=== PATIENT | male | born 1970 | race Caucasian/White ===

== ENCOUNTER 2024-10-13 01:57 | Inpatient (IN) | payer BC, SELFPAY ==
[2024-10-12 17:55] VITALS: BP 130/83
--- NOTE | 2024-10-12 17:59 | ED.GENMED ---
ED Provider Triage
<Mikey Lara PA-C - Last Filed: 10/12/24 18:00>
-
Patient seen by provider in Triage?: Seen in Triage
Attestation: A medical screening examination has been initiated by a qualified medical provider. Based on the assessment performed at this time, it has been determined that an emergent medical condition may exist and the patient has been informed
that further medical evaluation and possible additional diagnostic testing may be needed.
HPI: 53-year-old male with history of colectomy with ostomy presents with 1 weeks worth of worsening dysuria increased frequency and now lower abdominal pain. Temperature at triage 100.2. He denies any flank pain. No prior history of kidney
stones. He denies any blood in the urine. UTI versus pyelonephritis versus renal colic. Labs pending urinalysis ordered CT ordered
GENERAL: Alert , in no apparent distress
EYE: No visual abnormalities.
NECK: Trachea midline
ENT: No visible abnormalities.
LUNGS: No acute respiratory distress
NEUROLOGICAL: Alert and oriented
SKIN: Skin intact. No visible changes.
MUSCULOSKELETAL: Moving extremities normally
PSYCH: Normal and appropriate interaction.
This is a medical evaluation conducted in person to initiate diagnostic evaluation and provide initial therapeutics. Please see further documentation by the treating clinician.
History of Present Illness
<Mikey Lara PA-C - Last Filed: 10/12/24 18:00>
General
Chief Complaint: Urinary Symptoms
Time Seen by Provider: 10/12/24 20:29
<Fermin Jaime MD - Last Filed: 10/13/24 03:12>
General
Source: patient
Exam Limitations: none
Nursing documentation reviewed up to this point in time: agreed with
History of Present Illness
History of Present Illness:
Patient presents to ED secondary to 1 week history of urinary frequency, urgency, and hesitancy, with concerned that he may have urinary tract infection. Today, patient experienced fever and chills at home, which prompted evaluation in ED. Denies
painful urination. Denies back pain. Denies inability to urinate. Denies previous history of similar symptoms. Patient does not have history of urinary tract infection. Patient's abdominal history includes previous colectomy with colostomy bag
present. Patient states that his stool content has been normal. Denies recent change in medications or diet. Patient also reports mild along bilateral lower abdomen. Denies history of kidney stones. Denies trauma.
Past History
<Mikey Lara PA-C - Last Filed: 10/12/24 18:00>
Past History
ED Past Medical History: Other (ulcerative colitis)
ED Past Surgical History: Bowel resection (Total colectomy with ostomy bag )
Patient has exhibited threatening behavior?: No
Social History
Tobacco: Non-smoker
Alcohol: None
Drug: None
Review of Systems
<Fermin Jaime MD - Last Filed: 10/13/24 03:12>
Review of Systems
Allergies reviewed?: Yes
All Other Systems: ROS reviewed and negative except as documented in HPI and ROS
Constitutional: Reports fever and chills
EENT: Reports no symptoms
Respiratory: Reports no symptoms
Cardiac: Reports no symptoms
ABD/GI: Reports abdominal pain; Denies vomiting or diarrhea
: Denies dysuria, flank pain, difficulty voiding or bleeding
Musculoskeletal: Reports no symptoms
Skin: Reports no symptoms
Neurological: Reports no symptoms
Endocrine: Reports polyuria
Phy Exam
<Fermin Jaime MD - Last Filed: 10/13/24 03:12>
Physical Exam
Physical Exam:
Physical Exam
General: mild distress, not acutely ill. afebrile
Head: nc/at. eomi
Neck: supple. no meningeal signs.
Heart: s1/s2 regular rate and rhythm, no murmur.
Lungs: no acute respiratory distress. clear bilaterally
Abdomen: normal bowel sounds. not tender. no cva tenderness
Neuro: alert and oriented x 3. no focal neurological deficits
Skin: no rash
Psychiatric: well kept. interactive and cooperative
Extremities: no edema. no calf tenderness.
Sepsis
<Fermin Jaime MD - Last Filed: 10/13/24 03:12>
Sepsis Screening
Sepsis Assessment: Sepsis
Sepsis Screen
Sepsis Screen: Sepsis
Date: 10/13/24
Time: 03:11
Course
<Mikey Lara PA-C - Last Filed: 10/12/24 18:00>
Orders/Labs/Results
Orders:
Orders
10/12/24 17:58
CT Abd/pelvis W Iv Cont Urgent
Comment:
Reason For Exam: lower abdominal pain, urinary symptoms
10/12/24 18:14
Complete Blood Count/With Diff Urgent
Comprehensive Metabolic Panel Urgent
Glycohemoglobin (HgbA1c) Urgent
Urinalysis Reflex To Culture Urgent
Date Specimen was Collected: 10/12/24
Time Specimen was Collected: 18:03
Urine Microscopic Reflex Cult Urgent
Urine Culture Urgent
AMADEO Source: U
Specimen Description:
Date Specimen was Collected: 10/12/24
Time Specimen was Collected: 18:03
Comment: ADD ON
10/12/24 20:30
Add On - Microbiology Urgent
Tests Added?: urine culture
10/12/24 20:48
0.9% Sodium Chloride 1000 ml [Nss] 1,000 ml IV BOLUS
10/12/24 23:15
Piperacillin/Tazo 3.375 Gram [Zosyn] 3.375 gram in 50 ml IV NOW
10/12/24 23:18
Add On- LAB Urgent
Tests Added?: Hemoglobin A1c
10/12/24 23:30
Lactic Acid Q4H
Comment: CANCEL 2nd LACTIC ACID IF 1st LACTIC ACID IS LESS THAN 2
Blood Culture Q30M
AMADEO Source: Blood/Venous
Specimen Description:
10/13/24 00:39
Admit/Transfer Patient As Directed
Co-Sign Provider:
Level of Care: Inpatient admission
Assign to:: Medical/Surgical
Physician / Group: [facility]
Diagnosis: Intra-Abdominal Abscess
Reason for Hospitalization: Intra-Abdominal Abscess
Expected length of stay greater than two midnights?: Yes
ELOS- Estimated Length of Stay in days: 3
I certify the patient meets the requirements for IP care: Yes
10/13/24 00:40
Code Status As Directed
Resuscitation Status: Full Code
PRN Pain Medication Management As Directed
May give lesser potent ordered pain med per pt: Yes
preference::
Protocol:: Medication orders for pain may be administered in a
manner that supports deferring to patient preference
when the pt is:
- Requesting an ordered lesser potent pain medication.
Least to most potent pain medications are defined
as: acetaminophen < NSAID < tramadol < opioids
(morphine, oxycodone, hydromorphone).
- Requesting a lesser dose of the same medication IF
ORDERED.
- Requesting a less intrusive route of administration
if both routes are prescribed by the provider (PO <
IV).
10/13/24 02:14
Acetaminophen [Tylenol] 650 mg PO Q4HPRN PRN
Dextrose 50%-Water [Dextrose 50% Syringe] 12.5 grams IV [id number] PRN
Glucagon [GlucaGen] 1 mg IM PRN PRN
HYDROmorphone [Dilaudid] 0.5 mg IV Q4HPRN PRN
Lactated Ringers [Lr] 1,000 ml IV 125 mls/hr
Ondansetron Injectable [Zofran] 4 mg IV Q6HPRN PRN
10/13/24 02:14
ColoRectal Surgery Consult Routine
Consulting Provider: Rashi Obregon
Was physician already notified: No
Reason for consult: Intra-Abdominal Abscess (At rectosigmoid stump)
Consult Notification Routine
Specialty to Notify: Colorectal Surgery
Consult Notification Routine
Specialty to Notify: IRAD (Interventional Radiology)
DIETARY CONSULT Routine
Reason for Consult: New DM
Diabetes Education Consult Routine
Reason for Consult: Monitor Instruction
Newly Diagnosed?: Yes
IRAD CONSULT Routine
Consulting Provider: Mata Lima
Was physician already notified: No
Reason for Consult/Procedure: Intra-Abdominal Abscess
Acknowledgement that appropriate orders are entered: Yes
Fluid Culture with Gram Stain Routine
AMADEO Source: Peritoneal Fluid
Specimen Description:
Activity As Directed
Activity Level: Ambulate
Bedside Glucose Monitoring As Directed
Frequency: AC&HS
Additional Instructions:: Change to q6h if pt on TPN, tube feeding or not eating
Bladder Scan As Directed
Follow Bladder Retention/Intermittent Cath Algorithm?: Yes
PRN if no void in __ hours: 6
Frequency: Per Retention Algorithm
If Bladder Scan Result >: 400
then:: Straight cath
I/O [Intake/ Output] As Directed
Frequency: Per unit guidelines
Ostomy Care As Directed
Pneumatic Compression Sleeves As Directed
Type: Knee high
Straight Cath As Directed
Frequency: Per Retention Algorithm
Additional Instructions: straight cath as needed per acute urinary retention algorithm for 24 hrs
Additional Instructions: for bladder scan greater than 400 mL
Vital Signs As Directed
Frequency: Per unit guidelines
Weight As Directed
Frequency: Daily
Oxygen Therapy [O2 Therapy] [RESP] Routine
Titrate/Wean O2 to maintain O2 sat greater than (%): 94
DX Deep Vein Thrombosis Video Routine
10/13/24 02:37
Blood Culture Q30M
AMADEO Source: Blood/Venous
Specimen Description:
10/13/24 03:30
Lactic Acid Q4H
Comment: CANCEL 2nd LACTIC ACID IF 1st LACTIC ACID IS LESS THAN 2
10/13/24 Breakfast
NPO
Allow oral meds: Yes
Allow clear liquids: Sips of Clears
Basic Metabolic Panel IN AM
Complete Blood Count/No Diff IN AM
Piperacillin/Tazo 3.375 Gram [Zosyn] 3.375 gram in 50 ml IV Q6H
10/13/24 07:30
Insulin Aspart Corrective Low [Novolog Flexpen-Low Resistance] See Protocol SC AC
10/13/24 08:00
Olmesartan Medoxomil [Benicar] 20 mg PO DAILY
Abnormal Lab Results
10/12/24 10/12/24
18:14 22:34
WBC 12.0 H 10^3/uL
(4.8-10.8)
RBC 4.42 L 10^6/uL
(4.70-6.10)
MCH 31.4 H pg
(27.0-31.0)
MPV 11.2 H fL
(7.4-10.4)
Abs Immat Gran (auto) 0.1 H 10^3/uL
(0-0.05)
Absolute Neuts (auto) 8.8 H 10^3/uL
(1.4-6.5)
Absolute Monos (auto) 1.0 H 10^3/uL
(0.1-0.6)
Immature Gran % 0.6 H %
(0-0.5)
Lymphocytes % 15.8 L %
(20.5-51.1)
Sodium 130 L mmol/L
(135-145)
Chloride 96 L mmol/L
(98-107)
Carbon Dioxide 21 L mmol/L
(22-30)
BUN 22 H mg/dl
(9-20)
Glucose 416 H mg/dl
(70-99)
Total Bilirubin 1.5 H mg/dl
(0.2-1.3)
Urine Bacteria (Reflex) Few A
(Negative)
Urine Glucose 4+ A
(Negative)
Urine Albumin (Reflex) 1+ A
(Neg - Trace)
POC Glucose 321 H mg/dl
(70-99)
10/12/24 18:14
10/12/24 18:14
Vital Signs
Initial and Last Documented VS:
Initial Vital Signs
Temp Pulse Resp BP Pulse Ox
100.2 F 112 20 130/83 97
10/12/24 17:55 10/12/24 17:55 10/12/24 17:55 10/12/24 17:55 10/12/24 17:55
Last Documented Vital Signs
Temp Pulse Resp BP Pulse Ox
100.2 F 86 18 123/74 99
10/12/24 17:55 10/12/24 23:15 10/12/24 23:15 10/12/24 23:00 10/12/24 22:45
<Fermin Jaime MD - Last Filed: 10/13/24 03:12>
Orders/Labs/Results
Orders:
Orders
10/12/24 17:58
CT Abd/pelvis W Iv Cont Urgent
Comment:
Reason For Exam: lower abdominal pain, urinary symptoms
10/12/24 18:14
Complete Blood Count/With Diff Urgent
Comprehensive Metabolic Panel Urgent
Glycohemoglobin (HgbA1c) Urgent
Urinalysis Reflex To Culture Urgent
Date Specimen was Collected: 10/12/24
Time Specimen was Collected: 18:03
Urine Microscopic Reflex Cult Urgent
Urine Culture Urgent
AMADEO Source: U
Specimen Description:
Date Specimen was Collected: 10/12/24
Time Specimen was Collected: 18:03
Comment: ADD ON
10/12/24 20:30
Add On - Microbiology Urgent
Tests Added?: urine culture
10/12/24 20:48
0.9% Sodium Chloride 1000 ml [Nss] 1,000 ml IV BOLUS
10/12/24 23:15
Piperacillin/Tazo 3.375 Gram [Zosyn] 3.375 gram in 50 ml IV NOW
10/12/24 23:18
Add On- LAB Urgent
Tests Added?: Hemoglobin A1c
10/12/24 23:30
Lactic Acid Q4H
Comment: CANCEL 2nd LACTIC ACID IF 1st LACTIC ACID IS LESS THAN 2
Blood Culture Q30M
AMADEO Source: Blood/Venous
Specimen Description:
10/13/24 00:39
Admit/Transfer Patient As Directed
Co-Sign Provider:
Level of Care: Inpatient admission
Assign to:: Medical/Surgical
Physician / Group: Jones
Diagnosis: Intra-Abdominal Abscess
Reason for Hospitalization: Intra-Abdominal Abscess
Expected length of stay greater than two midnights?: Yes
ELOS- Estimated Length of Stay in days: 3
I certify the patient meets the requirements for IP care: Yes
10/13/24 00:40
Code Status As Directed
Resuscitation Status: Full Code
PRN Pain Medication Management As Directed
May give lesser potent ordered pain med per pt: Yes
preference::
Protocol:: Medication orders for pain may be administered in a
manner that supports deferring to patient preference
when the pt is:
- Requesting an ordered lesser potent pain medication.
Least to most potent pain medications are defined
as: acetaminophen < NSAID < tramadol < opioids
(morphine, oxycodone, hydromorphone).
- Requesting a lesser dose of the same medication IF
ORDERED.
- Requesting a less intrusive route of administration
if both routes are prescribed by the provider (PO <
IV).
10/13/24 02:14
Acetaminophen [Tylenol] 650 mg PO Q4HPRN PRN
Dextrose 50%-Water [Dextrose 50% Syringe] 12.5 grams IV [id number] PRN
Glucagon [GlucaGen] 1 mg IM PRN PRN
HYDROmorphone [Dilaudid] 0.5 mg IV Q4HPRN PRN
Lactated Ringers [Lr] 1,000 ml IV 125 mls/hr
Ondansetron Injectable [Zofran] 4 mg IV Q6HPRN PRN
10/13/24 02:14
ColoRectal Surgery Consult Routine
Consulting Provider: Rashi Obregon
Was physician already notified: No
Reason for consult: Intra-Abdominal Abscess (At rectosigmoid stump)
Consult Notification Routine
Specialty to Notify: Colorectal Surgery
Consult Notification Routine
Specialty to Notify: IRAD (Interventional Radiology)
DIETARY CONSULT Routine
Reason for Consult: New DM
Diabetes Education Consult Routine
Reason for Consult: Monitor Instruction
Newly Diagnosed?: Yes
IRAD CONSULT Routine
Consulting Provider: Mata Lima
Was physician already notified: No
Reason for Consult/Procedure: Intra-Abdominal Abscess
Acknowledgement that appropriate orders are entered: Yes
Fluid Culture with Gram Stain Routine
AMADEO Source: Peritoneal Fluid
Specimen Description:
Activity As Directed
Activity Level: Ambulate
Bedside Glucose Monitoring As Directed
Frequency: AC&HS
Additional Instructions:: Change to q6h if pt on TPN, tube feeding or not eating
Bladder Scan As Directed
Follow Bladder Retention/Intermittent Cath Algorithm?: Yes
PRN if no void in __ hours: 6
Frequency: Per Retention Algorithm
If Bladder Scan Result >: 400
then:: Straight cath
I/O [Intake/ Output] As Directed
Frequency: Per unit guidelines
Ostomy Care As Directed
Pneumatic Compression Sleeves As Directed
Type: Knee high
Straight Cath As Directed
Frequency: Per Retention Algorithm
Additional Instructions: straight cath as needed per acute urinary retention algorithm for 24 hrs
Additional Instructions: for bladder scan greater than 400 mL
Vital Signs As Directed
Frequency: Per unit guidelines
Weight As Directed
Frequency: Daily
Oxygen Therapy [O2 Therapy] [RESP] Routine
Titrate/Wean O2 to maintain O2 sat greater than (%): 94
DX Deep Vein Thrombosis Video Routine
10/13/24 02:37
Blood Culture Q30M
AMADEO Source: Blood/Venous
Specimen Description:
10/13/24 03:30
Lactic Acid Q4H
Comment: CANCEL 2nd LACTIC ACID IF 1st LACTIC ACID IS LESS THAN 2
10/13/24 Breakfast
NPO
Allow oral meds: Yes
Allow clear liquids: Sips of Clears
Basic Metabolic Panel IN AM
Complete Blood Count/No Diff IN AM
Piperacillin/Tazo 3.375 Gram [Zosyn] 3.375 gram in 50 ml IV Q6H
10/13/24 07:30
Insulin Aspart Corrective Low [Novolog Flexpen-Low Resistance] See Protocol SC AC
10/13/24 08:00
Olmesartan Medoxomil [Benicar] 20 mg PO DAILY
Abnormal Lab Results
10/12/24 10/12/24
18:14 22:34
WBC 12.0 H 10^3/uL
(4.8-10.8)
RBC 4.42 L 10^6/uL
(4.70-6.10)
MCH 31.4 H pg
(27.0-31.0)
MPV 11.2 H fL
(7.4-10.4)
Abs Immat Gran (auto) 0.1 H 10^3/uL
(0-0.05)
Absolute Neuts (auto) 8.8 H 10^3/uL
(1.4-6.5)
Absolute Monos (auto) 1.0 H 10^3/uL
(0.1-0.6)
Immature Gran % 0.6 H %
(0-0.5)
Lymphocytes % 15.8 L %
(20.5-51.1)
Sodium 130 L mmol/L
(135-145)
Chloride 96 L mmol/L
(98-107)
Carbon Dioxide 21 L mmol/L
(22-30)
BUN 22 H mg/dl
(9-20)
Glucose 416 H mg/dl
(70-99)
Total Bilirubin 1.5 H mg/dl
(0.2-1.3)
Urine Bacteria (Reflex) Few A
(Negative)
Urine Glucose 4+ A
(Negative)
Urine Albumin (Reflex) 1+ A
(Neg - Trace)
POC Glucose 321 H mg/dl
(70-99)
10/12/24 18:14
10/12/24 18:14
Vital Signs
Initial and Last Documented VS:
Initial Vital Signs
Temp Pulse Resp BP Pulse Ox
100.2 F 112 20 130/83 97
10/12/24 17:55 10/12/24 17:55 10/12/24 17:55 10/12/24 17:55 10/12/24 17:55
Last Documented Vital Signs
Temp Pulse Resp BP Pulse Ox
100.2 F 86 18 123/74 99
10/12/24 17:55 10/12/24 23:15 10/12/24 23:15 10/12/24 23:00 10/12/24 22:45
<Fermin Jaime MD - Last Filed: 10/13/24 03:12>
MDM/Problems Addressed
MDM/Problems Addressed:
History, exam, and CT abdomen pelvis concerning for sepsis, likely secondary to intra-abdominal abscess. Hyperglycemia without anion gap also noted, without history of diabetes. Patient will be admitted for IV antibiotics along with IV fluids.
Blood culture pending.
<Fermin Jaime MD - Last Filed: 10/13/24 03:12>
*Critical Care Note
Total Time (30-74mins, 75-104mins- exclusive of procedures): Not Applicable
ED Attending Note
<Mikey Lara PA-C - Last Filed: 10/12/24 18:00>
-
Portions of this chart may have been created with voice recognition software.� Occasional wrong word or��sound alike� substitutions may have occurred due to the inherent limitations of voice recognition software.
Discharge Plan
Departure
Patient Disposition: Admit
Date of Disposition: 10/12/24
Time of Disposition: 23:19
Admit to: Med/Surg
Presentation/result/management discussed w/ accepting MD/DO: Hospitalist
Discharge Problem:
Intra-abdominal abscess, Hyperglycemia
Interventions
Interventions:
*Risk Screen - Suicide Last Done: 10/12/24 17:55
*General Assessment Last Done: 10/12/24 17:55
*Neglect/Abuse Screening Last Done: 10/12/24 17:55
*ED COVID-19 Vaccine History Last Done: 10/12/24 20:41
ED-Male Genitourinary Assessment Last Done: 10/12/24 21:00
[2024-10-12 18:23] LABS: Urine Albumin 1+ (Neg - Trace); Urine Bilirubin Negative (Negative); Urine Character Clear (Clear); Urine Color Yellow; Urine Glucose 4+ (Negative); Urine Ketone Negative (Negative); Urine Leukocyte Negative (Negative); Urine Nitrite Negative (Negative); Urine Occult Blood Negative (Negative); Urine Urobilinogen Negative (Neg - 1+)
[2024-10-12 18:28] LABS: % Basophils 0.5 % (0-2); % Eosinophils 1.2 % (0-6); % Immature Granulocytes 0.6 % (0-0.5); % Lymphocytes 15.8 % (20.5-51.1); % Monocytes 8.3 % (1.7-9.3); % Neutrophils 73.6 % (42.2-75.2); Absolute Basophils 0.1 10^3/uL (0-0.2); Absolute Eosinophils 0.1 10^3/uL (0-0.7); Absolute Immature Granulocytes 0.1 10^3/uL (0-0.05); Absolute Lymphocytes 1.9 10^3/uL (1.2-3.4); Absolute Neutrophils 8.8 10^3/uL (1.4-6.5); Hematocrit 39.1 % (39.0-52.0); Hemoglobin 13.9 g/dL (13.0-18.0); Mean Corp Hgb Conc. 35.5 g/dL (33.0-37.0); Mean Corpuscular Hgb 31.4 pg (27.0-31.0); Mean Corpuscular Volume 88.5 fL (80.0-94.0); Mean Platelet Volume 11.2 fL (7.4-10.4); Nucleated Red Blood Cells % 0 % (-); Platelet Count 205 10^3/uL (130-400); Red Blood Cell Count 4.42 10^6/uL (4.70-6.10); Red Cell Dist. Width 12.7 % (11.5-14.5)
[2024-10-12 18:34] LABS: Urine Bacteria Few (Negative); Urine Red Blood Cell 0-2 /HPF (0-2); Urine Squamous Cell 0-2 /LPF (Few)
[2024-10-12 18:35] LABS: Urine White Cell 0-2 /HPF (0-5)
[2024-10-12 18:44] LABS: ALT (SGPT) 28 U/L (0-50); AST (SGOT) 20 U/L (17-59); Albumin 4.6 g/dl (3.5-5.0); Alkaline Phosphatase 94 U/L (38-126); Blood Urea Nitrogen 22 mg/dl (9-20); Calcium 9.6 mg/dl (8.4-10.2); Carbon Dioxide 21 mmol/L (22-30); Chloride 96 mmol/L (98-107); Glucose 416 mg/dl (70-99); Potassium 3.7 mmol/L (3.5-5.1); Sodium 130 mmol/L (135-145); Total Bilirubin 1.5 mg/dl (0.2-1.3); Total Protein 7.4 g/dl (6.3-8.2); eGFR > 60.00
[2024-10-12 20:58] VITALS: BP 112/63
[2024-10-12 21:00] VITALS: BP 114/61; BMI 34.1
[2024-10-12] MEDS: NSS 1000 IV (21:02)
[2024-10-12 22:00] VITALS: BP 126/75
[2024-10-12 22:35] LABS: Glucose - Point of Care 321 mg/dl (70-99)
[2024-10-12 23:00] VITALS: BP 123/74
[2024-10-13] VITALS (10 sets, daily range): BP systolic 112–145; BP diastolic 64–81; BMI 34.1; BMI 33.6
[2024-10-13] MEDS: ZOSYN 50 IV ×5 (00:05→23:39)
--- NOTE | 2024-10-13 00:43 | HPS.HSE ---
Family Physician
-
Family Physician: Edel Spann, DO
Chief Complaint
-
Urinary Frequency, Abdominal Pain
History of Present Illness
Patient is a 53y M with PMH significant for ulcerative colitis who presents to ED complaining of urinary frequency for about 1 1/2 weeks and LLQ abdominal discomfort x several days. Patient felt that he may have a urine infection and has been
increasing his fluid intake as a result. Today he developed subjective fever, malaise and shaking chills at home and presented to the ED for further evaluation.
He has an end-ileostomy s/p prior total colectomy for UC. He denies any recent change in ostomy output.
He does have discharge from his rectal stump and states that this may have increased in volume over the past week or so.
He denies any other current complaints or concerns and denies any other significant health issues.
Medical History
Past Medical History
Past Medical History: Reports Other
Additional Past Medical History:
Ulcerative Colitis
Hypertension
DM-II (new)
Obesity
Past Surgical History: Reports Other
Additional Past Surgical History:
Total Colectomy / End-Ileostomy (2021)
T&A
Social History
Tobacco: Former Smoker (Quit many years ago.)
Alcohol: Occasional
Drug: None
Family History
Family History: Not pertinent
Allergies / Home Medications
Allergies reflects when Allergies were last updated in [facility].
Home Medications with original date entered in [facility]
Allergy/Medication List:
Allergies
Allergy/AdvReac Type Severity Reaction Status Date / Time
No Known Allergies Allergy Verified 10/12/24 17:58
Home Medications
ibuprofen 200 mg tablet 400 mg PO Q8HPRN PRN mild pain 10/12/24
olmesartan 20 mg-hydrochlorothiazide 12.5 mg tablet 1 tab PO DAILY 10/12/24
Review of Systems
-
History Source: Patient
A 12 point ROS was completed and negative except as noted: Yes
Constitutional: Reports Fever, Fatigue and Chills
EENT: Denies Sore Throat
Respiratory: Denies Cough or Trouble Breathing
Cardiac: Denies Chest Pain or Palpitations
Abdomen/GI: Reports Abdominal Pain; Denies Nausea, Vomiting, Diarrhea, Constipated, Bloody Stools or Black Stools
: Reports Frequency; Denies Dysuria or Flank Pain
Musculoskeletal: Denies Joint Pain or Edema
Neurological: Reports Headache; Denies Dizzy
Psych: Denies Depression or Anxiety
Physical Exam
Vital Signs
Vital Signs
Temp Pulse Resp BP Pulse Ox
100.2 F 86 18 123/74 99
10/12/24 17:55 10/12/24 23:15 10/12/24 23:15 10/12/24 23:00 10/12/24 22:45
Physical Exam
General: Other (53y M in no acute distress.)
HEENT: Moist mucous membranes and PERRLA
Respiratory: Clear; No Wheezes, Rales or Rhonchi
Cardiac: S1/S2, Regular Rhythm and Murmur (II/ STEPHANIE)
GI: Soft, Non Distended, Normal Bowel Sounds and Other (R sided ostomy intact with dark brown liquid stool in device. Pos LLQ tenderness.)
Musculoskeletal: No Clubbing, No Cyanosis and No Edema
Neuro: AO x 3
Laboratory Results
-
10/12/24 18:14
10/12/24 18:14
Laboratory Results
Total Bilirubin 1.5 mg/dl (0.2-1.3) H 10/12/24 18:14
AST 20 U/L (17-59) 10/12/24 18:14
ALT 28 U/L (0-50) 10/12/24 18:14
Alkaline Phosphatase 94 U/L (38-126) 10/12/24 18:14
Impression/Plan
-
A/P: Patient is a 53y M with PMH significant for ulcerative colitis s/p total colectomy who presents to ED complaining of urinary frequency and LLQ abdominal pain.
Intra-Abdominal Abscess
- Admit for further evaluation and treatment.
- CT scan shows 5.7cm abscess adjacent to the rectosigmoid stump.
- IV abx pending culture data.
- IR and Colorectal Surgery evaluations.
- Patient notes that he is scheduled for removal of the stump at [place] in the near future.
- Follow-up any culture data obtained from abscess and adjust abx as appropriate.
DM-II
Pseudohyponatremia
- Patient with no prior history of DM.
- Glucose currently > 400 without significantly elevated anion gap.
- IVFs overnight.
- Begin insulin treatment / treat underlying infectious proces as noted above.
- DM education.
- Check A1C.
Benign Hypertension
- Stable. Continue olmesartan. Hold HCTZ for now.
Ulcerative Colitis
- s/p prior colectomy. Routine ostomy care.
Obesity due to excess calories
- Affects all aspects of care.
- Encourage healthy diet and increased exercise with goal of weight loss.
DVT Prophylaxis: SCDs
Code Status: Full
[2024-10-13 01:06] LABS: Lactic Acid 1.1 mmol/L (0.7-2.0)
[2024-10-13] MEDS: LR 1000 IV ×3 (02:50→20:13)
[2024-10-13 07:18] LABS: Hematocrit 37.1 % (39.0-52.0); Hemoglobin 12.8 g/dL (13.0-18.0); Mean Corp Hgb Conc. 34.5 g/dL (33.0-37.0); Mean Corpuscular Hgb 31.6 pg (27.0-31.0); Mean Corpuscular Volume 91.6 fL (80.0-94.0); Platelet Count 177 10^3/uL (130-400); Red Blood Cell Count 4.05 10^6/uL (4.70-6.10); Red Cell Dist. Width 12.8 % (11.5-14.5); White Blood Cell Count 11.9 10^3/uL (4.8-10.8)
[2024-10-13 08:05] LABS: Glucose - Point of Care 260 mg/dl (70-99)
[2024-10-13 10:02] LABS: Blood Urea Nitrogen 20 mg/dl (9-20); Calcium 9.2 mg/dl (8.4-10.2); Carbon Dioxide 22 mmol/L (22-30); Chloride 103 mmol/L (98-107); Estimated Creatinine Clearance 87 ml/min; Glucose 257 mg/dl (70-99); Potassium 3.5 mmol/L (3.5-5.1); Sodium 136 mmol/L (135-145); eGFR > 60.00
[2024-10-13] MEDS: BENICAR 20 MG PO (10:09)
[2024-10-13] MEDS: NOVOLOG FLEXPEN-LOW RESISTANCE 3 UNITS SC (10:11)
--- NOTE | 2024-10-13 11:25 | PTCARENOTE ---
10/13/2024 DIABETES EDUCATION
I met with Micah to review diabetes management. Micah is newly diagnosed with Type 2 DM, is currently in ER with diagnosis of abscess adjacent to the rectosigmoid stump. Micah states that the abscess is causing the diabetes and once the
abscess clears, his diabetes will 'go away'.
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
I provided verbal and hands on demonstration of using Contour Next glucometer; sample kit left for him to use at home. I also reviewed target glucose ranges and monitoring schedule; signs and symptoms of hyperglycemia and hypoglycemia; written
material was provided and Micah verbalized understanding.
Encouraged Micah to follow up with his PCP for post d/c appointment and to monitor blood glucose levels. Information provided on the outpatient DSME program.
Will monitor Micah and revisit for additional SMBG reinforcement and review DM related d/c needs.
--- NOTE | 2024-10-13 11:51 | W.PN.UPDATE ---
Update Note
Progress Note Update
- IR consulted for possible drainage of LLQ abscess seen on CT from 10/12/24
- Imaging reviewed. Unfortunately don't feel there is a safe window for CT guided drainage at present. Collection is bounded by small bowel loops anteriorly laterally with circumflex artery precluding a far lateral access.
--- NOTE | 2024-10-13 12:10 | W.PN.HOSP.TC ---
Addendum entered and electronically signed by Verito Orourke MD 10/13/24 14:41:
I saw and evaluated the patient independently. I reviewed the resident�s note and agree with findings and plan as documented by Dr. Chavarria.
GENERAL: well developed, well nourished, male in no apparent distress
HEENT: NC/AT
HEART: regular rate and rhythm, +S1, +S2, STEPHANIE faint
LUNGS : clear to auscultation bilaterally
ABDOM: soft, LLQ tenderness no guarding or rebound, nondistended, + hypoactive bowel sounds
EXT: no cyanosis, clubbing, or edema
NEUROLOGIC: grossly intact
Intra-Abdominal Abscess--CT scan shows 5.7cm abscess adjacent to the rectosigmoid stump--apprec CRS--cont zosyn--IR for possible aspiration/drain unable to be done safely--cultures pending--Patient notes that he is scheduled for removal of the stump
at [place] in January 2025--consider ID consult
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
Pseudohyponatremia--Glucose > 400 on arrival without anion gap, no urine ketones--IVFs, NPO--Diabetic education, SSI
Essential Hypertension-- Stable-- Continue Olmesartan
Ulcerative Colitis--s/p prior colectomy--Routine ostomy care.
Obesity due to excess calories - Affects all aspects of care - Encourage healthy diet and increased exercise with goal of weight loss.
DVT Proph--SCDs
code status--FULL CODE
Original Note:
Today's Communication/Plan
-
IVF, IV abx, colorectal surgery eval
Assessment / Plan
Assessment / Plan
Patient is a 53y M with PMH significant for ulcerative colitis s/p total colectomy who presents to ED complaining of urinary frequency and LLQ abdominal pain.
Intra-Abdominal Abscess:
CT scan shows 5.7cm abscess adjacent to the rectosigmoid stump.
-Cont IV Zosyn pending culture data.
-Appreciate IR and Colorectal Surgery
-No safe window for CT guided drainage
-Patient notes that he is scheduled for removal of the stump at [place] in January 2025
-Follow-up any culture data obtained from abscess and adjust abx as appropriate.
DM-II
New diagnosis, HbA1c 10
Pseudohyponatremia
-Glucose > 400 on arrival without anion gap, no urine ketones
-IVFs, NPO
-Diabetic education, SSI
Benign Hypertension:
- Stable. Continue Olmesartan
Ulcerative Colitis
- s/p prior colectomy. Routine ostomy care.
Obesity due to excess calories
- Affects all aspects of care.
- Encourage healthy diet and increased exercise with goal of weight loss.
DVT Prophylaxis: SCDs
Code Status: Full
Anticipated Discharge: > 48 hours
Subjective/Interval History
-
Date of Service: October 13, 2024
Objective Data
-
Labs:
Laboratory Results
10/13/24
06:09
WBC 11.9 H
Hgb 12.8 L
Hct 37.1 L
Plt Count 177
Sodium 136
Potassium 3.5
Chloride 103
Carbon Dioxide 22
BUN 20
Creatinine 1.3
Glucose 257 H
Calcium 9.2
Vital Signs:
Vital Signs
Temp Pulse Resp BP Pulse Ox
100.2 F 83 17 112/70 95
10/12/24 17:55 10/13/24 04:45 10/13/24 04:45 10/13/24 04:00 10/13/24 02:45
I&O
10/12/24 10/13/24 10/14/24
06:59 06:59 06:59
Output Total 675 / 675 500 / 500
Balance -675 / -675 -500 / -500
Review of Systems
-
History Source: Patient
Respiratory: Denies Trouble Breathing
Cardiac: Denies Chest Pain or Palpitations
Abdomen/GI: Reports Abdominal Pain (LLQ) and Other (no change in ostomy output); Denies Nausea, Vomiting, Bloody Stools or Black Stools
Physical Exam
-
General: Well Developed, Well Nourished, No Apparent Distress and Comfortable
HEENT: Normocephalic, Atraumatic and Moist Mucous Membranes
Respiratory: Clear to Auscultation and Non Labored Respirations; Negative Wheezes, Rales, Rhonchi or Crackles
Cardiac: Regular Rhythm and S1/S2; Negative Murmur, Rub or Calf Tenderness
GI: Soft and Tender ( to deep palpation in LLQ)
Musculoskeletal: No Clubbing, No Cyanosis and No Edema
Skin: Warm and Dry
Neuro: Awake, Alert and Oriented
Psych: Calm
--- NOTE | 2024-10-13 13:12 | CON.CRS ---
Consultation
-
Date/Time Consultation Requested: 10/13/2024, 02:14
Date/Time Consultation Performed: 10/13/2024, 09:00
Requesting Provider: Craig Goldman DO
Performing Provider: Mikey Obregon MD
Reason for Consultation: abdominal abscess
Medical History
-
Chief Complaint: urinary frequency
History of Present Illness:
49 presents to [facility] ER frequency. The patient has a significant past medical history of ulcerative colitis that was diagnosed over 2-1/2 years ago. He had ulcerative colitis for only 4 months and then underwent a colectomy with ileostomy at
[place] by Dr. Randolph. He has been doing quite well and has not remained on any ulcerative colitis medications. He has not required any further treatments and has had no recent CAT scans. He states that he noticed increased urinary frequency
recently and thought it was a UTI. He sometimes has rectal discharge but it has been increasing in frequency over the past week. He is ileostomy still functions and he has an appetite. He mentions he has not had the area looked at via a scope
recently. He apparently had been scheduled to have his rectal stump removed a week ago but postponed this until. Given the urinary frequency, he came to the ER believing he had a UTI. His Tmax in the ER is 100.2. His white count is 11.9. CT of
the abdomen and pelvis shows a 5.7cm rim-enhancing fluid collection suspicious for an abscess in the left lower quadrant in close proximity to the rectosigmoid stump. Previous total abdominal colectomy with a right lower quadrant ileostomy. Given
this finding we have been consulted for further surgical recommendation.
Past Medical History
Past Medical History: Other (Ulcerative colitis, hypertension, diabetes type 2, obesity)
Past Surgical History: Orthopedic and Other (Total colectomy with ileostomy in [address] Cannon at [place])
Social History
Tobacco: Former Smoker
Alcohol: Occasional
Drug: None
Allergies / Home Medications
Allergy/AdvReac Type Severity Reaction Status Date / Time
No Known Allergies Allergy Verified 10/12/24 17:58
�Medication �Instructions �Recorded �Confirmed �Type
ibuprofen 200 mg tablet 400 mg PO Q8HPRN PRN mild pain 10/12/24 10/12/24 History
olmesartan 20 1 tab PO DAILY 10/12/24 10/12/24 History
mg-hydrochlorothiazide 12.5 mg
tablet
Review of Systems
-
History Source: Patient
Abdomen/GI: Abdominal Pain
: Frequency
A 10 point review of systems was completed, and was negative except as per HPI.
Physical Exam
Vital Signs
Temp 100.2 F 10/12/24 17:55
Pulse 83 10/13/24 04:45
Resp Rate 17 10/13/24 04:45
Blood pressure 112/70 10/13/24 04:00
SaO2 95 10/13/24 02:45
10/12/24 10/13/24 10/14/24
06:59 06:59 06:59
Actual Weight 117.1 kg
Body Mass Index (BMI) 34.1
Lab Results / Allergies
10/13/24 06:09
10/13/24 06:09
WBC 11.9 10^3/uL (4.8-10.8) H 10/13/24 06:09
Hgb 12.8 g/dL (13.0-18.0) L 10/13/24 06:09
Hct 37.1 % (39.0-52.0) L 10/13/24 06:09
Plt Count 177 10^3/uL (130-400) 10/13/24 06:09
Abs Immat Gran (auto) 0.1 10^3/uL (0-0.05) H 10/12/24 18:14
Neutrophils % 73.6 % (42.2-75.2) 10/12/24 18:14
Allergy/AdvReac Type Severity Reaction Status Date / Time
No Known Allergies Allergy Verified 10/12/24 17:58
Physical Exam
General: Well Developed, Well Nourished and No Apparent Distress
GI: Soft, Tender (Left lower quadrant) and Other (Ileostomy warm and pink with function)
Skin: Warm and Dry
Data Reviewed
-
CT Scan: Image Personally Visualized and interpreted, Report Reviewed by me and Discussed with Patient
Labs: Labs Reviewed by me, Discussed with Physician and Discussed with Patient
Old Records: Reviewed
Assessment / Plan
-
Assessment: 53-year-old male with a history of total colectomy with ileostomy in 2021 secondary to ulcerative colitis now presents with urinary frequency and found to have a 5.7 cm rim-enhancing abscess near the rectal stump
Plan:
-IR consult for drain
-Cultures to be done in IR
-Continue with IV antibiotics
-Okay to start a regular diet post IR
-No plans for emergent surgery at this time
[2024-10-13 14:25] LABS: Glucose - Point of Care 190 mg/dl (70-99)
[2024-10-13] MEDS: NOVOLOG FLEXPEN-LOW RESISTANCE 1 UNITS SC (15:26)
--- NOTE | 2024-10-13 16:37 | CM ---
Patient seen at bedside with family. Patient lives in a 3 story home, no DME at home. Patient X [facility]AY [employer] [facility]ber and patient continues with [facility] in [facility]. Patient plan is for home with no needs. CM will continue to follow for discharge
planning needs.
Plan; home with no needs vs home with VN
[2024-10-13] MEDS: TYLENOL 650 MG PO ×2 (16:54→21:40)
[2024-10-13 17:41] LABS: Glucose - Point of Care 200 mg/dl (70-99)
[2024-10-13] MEDS: NOVOLOG FLEXPEN-LOW RESISTANCE 2 UNITS SC (18:06)
--- NOTE | 2024-10-13 18:29 | PTCARENOTE ---
Arrived to unit in bed. Patient able to ambulate without assistance to bathroom. Cylinder placed in bathroom to measure ileostomy output. Oriented to room. Call sterling within reach.
[2024-10-13 22:26] LABS: Glucose - Point of Care 237 mg/dl (70-99)
[2024-10-14] MEDS: LR 1000 IV (04:23)
[2024-10-14] MEDS: ZOSYN 50 IV ×2 (05:23→12:26)
[2024-10-14 06:00] VITALS: BMI 33.6
[2024-10-14 07:50] VITALS: BP 139/77
[2024-10-14 08:04] LABS: Hematocrit 34.7 % (39.0-52.0); Hemoglobin 12.3 g/dL (13.0-18.0); Mean Corp Hgb Conc. 35.4 g/dL (33.0-37.0); Mean Corpuscular Hgb 31.6 pg (27.0-31.0); Mean Corpuscular Volume 89.2 fL (80.0-94.0); Mean Platelet Volume 11.8 fL (7.4-10.4); Platelet Count 172 10^3/uL (130-400); Red Blood Cell Count 3.89 10^6/uL (4.70-6.10); Red Cell Dist. Width 12.6 % (11.5-14.5); White Blood Cell Count 9.6 10^3/uL (4.8-10.8)
[2024-10-14] MEDS: BENICAR 20 MG PO (08:17)
[2024-10-14] MEDS: TYLENOL 650 MG PO (08:17)
[2024-10-14] MEDS: NOVOLOG FLEXPEN-LOW RESISTANCE 2 UNITS SC (08:35)
[2024-10-14 08:36] LABS: Glucose - Point of Care 212 mg/dl (70-99)
[2024-10-14 08:38] LABS: Blood Urea Nitrogen 14 mg/dl (9-20); Carbon Dioxide 24 mmol/L (22-30); Chloride 102 mmol/L (98-107); Estimated Creatinine Clearance 102 ml/min; Glucose 203 mg/dl (70-99); Potassium 3.4 mmol/L (3.5-5.1); Sodium 138 mmol/L (135-145); eGFR > 60.00
--- NOTE | 2024-10-14 09:19 | WOUNDNOTE ---
WOC RN NOTE: Reviewed chart and met with patient. Patient has own ostomy supplies from home and performs own ostomy care. Will sign off.
--- NOTE | 2024-10-14 11:04 | W.PN.CRS1 ---
Today's Communication / Plan
-
no plans for OR
ID consult
follow up with his surgeon, Dr. Fay
Assessment/Plan
-
Assessment: 53-year-old male with a history of total colectomy with ileostomy in 2021 secondary to ulcerative colitis now presents with urinary frequency and found to have a 5.7 cm rim-enhancing abscess near the rectal stump
10/13- IR unable to place drain due to small bowel
WBC 9.6 (11.9), afebrile, vitals normal
Plan:
-Continue IV antibiotics.
-ID consult pending
-Continue regular diet
-No plans for surgery at this time
-Patient will follow up with his surgery at [place], Dr. Cannon. If he chooses, he may follow up in the office with Dr. Obregon. Discussed with patient. Will sign off, please contact us if any surgical issues arise. OKay for d/c from our standpoint
after ID consult.
Subjective Data
Subjective Data
Date of Service: October 14, 2024
Patient stats he feels 'okay'. He has some groin tenderness. Otherwise he is tolerating a diet. He denies nausea or vomiting.
Objective Data
-
Vital Signs
Temp Pulse Resp BP Pulse Ox
98.2 F 89 18 139/77 97
10/14/24 07:50 10/14/24 07:50 10/14/24 07:50 10/14/24 07:50 10/14/24 07:50
Intake & Output
10/13/24 10/14/24 10/15/24
06:59 06:59 06:59
Intake Total 240 / 240
Output Total 675 / 675 1200 / 1200
Balance -675 / -675 -960 / -960
Intake:
Oral fluids 240 / 240
Output:
Liquid stool amount 375 / 375 700 / 700
Ileostomy 375 / 375 700 / 700
Urine, Voided 300 / 300 500 / 500
Other:
Number of approximated MODERATE 2
amounts of urine
Lab Results
10/14/24 07:05
10/14/24 07:05
Physical Exam
-
General: No Acute Distress and AOx3
Abdomen: Soft, Non Distended and Tender (LLQ - mild)
Skin: Warm and Dry
[2024-10-14 12:06] LABS: Glucose - Point of Care 158 mg/dl (70-99)
--- NOTE | 2024-10-14 12:12 | CON.ID ---
Consultation
-
Date/Time Consultation Requested: October 13, 2024 1638
Date/Time Consultation Performed: October 14, 2024 1215
Requesting Provider: Dr. Edel Chavarria
Performing Provider: Dr. Linda Hodge
Reason for Consultation: Intra-abdominal abscess
Chief Complaint / Past History
Chief Complaint
Abdominal pain
History of Present Illness
53-year-old male with history ulcerative colitis status post total colectomy with end ileostomy in 2021 who presented to the hospital on October 12 complaining of several day history of pain over the left lower quadrant and increase in urine
frequency. He complains of subjective fever, chills, fatigue. In ED white count 12, glucose noted more than 400 new diagnosis of diabetes. CAT scan of the abdomen pelvis shows a 5.7 centimeter abscess left lower quadrant next to the rectosigmoid
stump. Per IR, abscess is not safely accessible. No plans for surgical intervention per surgery. He is currently on Zosyn. He reports that he is feeling better today. The urinary frequency has resolved. The left lower quadrant abdominal pain
improved. He has appointment to remove the rectal stump at [place] in January. He has occasional mucus discharge from the rectal stump.
Past History
Additional Past Medical History:
Diabetes mellitus type 2 (new)
Hypertension
Ulcerative colitis status post total colectomy with end ileostomy 2021, no longer on systemic tx.
Allergy History:
No Known Allergies Allergy (Verified 10/12/24 17:58)
Medications Reviewed: Yes
Current Antibiotics:
Zosyn day 3
Social History
Tobacco: Former Smoker
Alcohol: Occasional
Drug: None
Personal: Other (Originally from [place] then lived in [place] for 14 years prior to coming to [place] [facility] 5 years ago.)
Employment: Employed (Office job)
Family History
Family History: Not Pertinent
Review of Systems
Review of Systems
General: Chills; Negative Change in Appetite
HEENT: Negative Sinus Problems, Headache or Pharyngitis
Cardiovascular: Negative Chest Pain or Edema
Respiratory: Negative Dyspnea, Cough or Sputum Production
Gasteroenterology: Negative Nausea or Vomiting
Genital / Urological: Negative Dysuria or Flank Pain
Endocrine: Negative Weakness
Skin / Hair / Nails: Negative Rash
Neurological: Negative Dizziness
Psychological: Negative Sleep Changes
All systems: All other systems were reviewed and were negative
Vital Signs
Temp Pulse Resp BP Pulse Ox
98.2 F 89 18 139/77 97
10/14/24 07:50 10/14/24 07:50 10/14/24 07:50 10/14/24 07:50 10/14/24 08:30
Physical Exam
Physical Exam
Constitutional: No Acute Distress, Comfortable and Obese
Eyes: No Conjunctival Hemorrhage and Sclera Anicteric
Cardiovascular: Regular Rate and S1/S2
Pulmonary: Clear
Gastrointestinal: Soft, Tender (mild LLQ), Non Distended, Normal Bowel Sounds and Other (ileostomy with liquid stool)
Genito-Urinary: Negative CVA Tenderness
Extremities: Negative Edema
Neurological: AO x 3
Lab / Diagnostic Study Results
10/14/24 07:05
10/14/24 07:05
Abs Immat Gran (auto) 0.1 10^3/uL (0-0.05) H 10/12/24 18:14
Absolute Neuts (auto) 8.8 10^3/uL (1.4-6.5) H 10/12/24 18:14
Absolute Lymphs (auto) 1.9 10^3/uL (1.2-3.4) 10/12/24 18:14
Absolute Monos (auto) 1.0 10^3/uL (0.1-0.6) H 10/12/24 18:14
Absolute Basos (auto) 0.1 10^3/uL (0-0.2) 10/12/24 18:14
Immature Gran % 0.6 % (0-0.5) H 10/12/24 18:14
Neutrophils % 73.6 % (42.2-75.2) 10/12/24 18:14
Lymphocytes % 15.8 % (20.5-51.1) L 10/12/24 18:14
Monocytes % 8.3 % (1.7-9.3) 10/12/24 18:14
Eosinophils % 1.2 % (0-6) 10/12/24 18:14
Basophils % 0.5 % (0-2) 10/12/24 18:14
Lactic Acid Cancelled 10/13/24 03:30
Ur Squamous Epith Cells 0-2 /LPF (Few) 10/12/24 18:14
Microbiology Results
Micro:
10/12/24 18:14 Urine Culture - Final
Urine No Significant Growth
10/13/24 02:37 Blood Culture - Preliminary
Blood/Venous No Growth in 24 hours- Final report to follow
10/13/24 00:03 Blood Culture - Preliminary
Blood/Venous No Growth in 24 hours- Final report to follow
10/12/24 CT a/p: 5.7 cm rim-enhancing fluid collection suspicious for an abscess in the left lower quadrant in close proximity to the rectosigmoid stump. Previous total abdominal colectomy with a right lower quadrant ileostomy.
Assessment / Plan
# 5.7 cm intra-abdominal abscess adjacent to the rectal stump.
# Ulcerative colitis history of total colectomy, end-ileostomy 2021, no longer systemic therapy
-Abscess is not safely accessible for drainage per IR.
-No surgical intervention per surgery.
-He is scheduled for rectal stump resection in January at [place].
-Can transition to empiric Augmentin 875 mg p.o. twice daily x 3 weeks.
# New diagnosis of diabetes mellitus type 2
- Discussed importance of glycemic control to reduce infections.
Care Review
Plan reviewed with: Physician (Dr. Obregon. Dr. Chavarria)
[2024-10-14] MEDS: NOVOLOG FLEXPEN-LOW RESISTANCE SC ×2 (12:26→12:30)
[2024-10-14] MEDS: KCL 40 MEQ PO (15:01)
--- NOTE | 2024-10-14 15:08 | CM ---
Patient seen at bedside with physicians. Patient stated that he would go home in his car and that he plans to go home with no needs. CM will continue to follow for discharge planning needs.
Plan;home with no needs.
[2024-10-14 15:18] VITALS: BP 128/84
--- NOTE | 2024-10-14 18:48 | W.PN.HOSP.TC ---
Addendum entered and electronically signed by Verito Orourke MD 10/14/24 19:19:
I saw and evaluated the patient independently. I reviewed the resident�s note and agree with findings and plan as documented by Dr. Chavarria.
GENERAL: well developed, well nourished, male in no apparent distress
HEENT: NC/AT
HEART: regular rate and rhythm, +S1, +S2, STEPHANIE faint
LUNGS : clear to auscultation bilaterally
ABDOM: soft, LLQ tenderness no guarding or rebound, nondistended, + hypoactive bowel sounds
EXT: no cyanosis, clubbing, or edema
NEUROLOGIC: grossly intact
Intra-Abdominal Abscess--CT scan shows 5.7cm abscess adjacent to the rectosigmoid stump--apprec CRS--cont zosyn--IR cannot safely reach area for aspiration/drain--cultures negative--Patient notes that he is scheduled for removal of the stump at
[place] in January 2025--apprec ID consult
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
Pseudohyponatremia--Glucose > 400 on arrival without anion gap, no urine ketones--IVFs, NPO--Diabetic education, SSI
Essential Hypertension-- Stable-- Continue Olmesartan
Ulcerative Colitis--s/p prior colectomy--Routine ostomy care.
Obesity due to excess calories - Affects all aspects of care - Encourage healthy diet and increased exercise with goal of weight loss.
DVT Proph--SCDs
code status--FULL CODE
ok for d/c
Original Note:
Today's Communication/Plan
-
DC planning
Assessment / Plan
Assessment / Plan
Patient is a 53y M with PMH significant for ulcerative colitis s/p total colectomy who presents to ED complaining of urinary frequency and LLQ abdominal pain.
Intra-Abdominal Abscess:
CT scan shows 5.7cm abscess adjacent to the rectosigmoid stump.
Blood and urine cxs negative. Cont IV Zosyn, convert to PO Augmentin x 3 weeks upon discharge.
-Appreciate IR and Colorectal Surgery
-No safe window for CT guided drainage, no emergent indication for surgery
-Patient notes that he is scheduled for removal of the stump at [place] in January 2025, will follow up with them after discharge
DM-II
New diagnosis, HbA1c 10
Pseudohyponatremia
-Glucose > 400 on arrival without anion gap, no urine ketones
-IVFs, NPO
-Diabetic education, SSI, outpatient PCP follow up
Benign Hypertension:
- Stable. Continue Olmesartan
Ulcerative Colitis
- s/p prior colectomy. Routine ostomy care.
Obesity due to excess calories
- Affects all aspects of care.
- Encourage healthy diet and increased exercise with goal of weight loss.
DVT Prophylaxis: SCDs
Code Status: Full
Anticipated Discharge: Today
Subjective/Interval History
-
Date of Service: October 14, 2024
No acute overnight events
Objective Data
-
Labs:
Laboratory Results
10/14/24
07:05
WBC 9.6
Hgb 12.3 L
Hct 34.7 L
Plt Count 172
Sodium 138
Potassium 3.4 L
Chloride 102
Carbon Dioxide 24
BUN 14
Creatinine 1.1
Glucose 203 H
Calcium 9.0
Vital Signs:
Vital Signs
Temp Pulse Resp BP Pulse Ox
98.6 F 84 18 128/84 99
10/14/24 15:18 10/14/24 15:18 10/14/24 15:18 10/14/24 15:18 10/14/24 15:18
I&O
10/13/24 10/14/24 10/15/24
06:59 06:59 06:59
Intake Total 240 / 240
Output Total 675 / 675 1200 / 1200
Balance -675 / -675 -960 / -960
Review of Systems
-
History Source: Patient
Constitutional: Denies Fever
Respiratory: Denies Cough or Trouble Breathing
Cardiac: Denies Chest Pain
Abdomen/GI: Reports Abdominal Pain (mild LLQ); Denies Nausea, Vomiting, Diarrhea, Constipated or Bloody Stools
Genitourinary: Denies Dysuria, Frequency or Difficulty Voiding
Physical Exam
-
General: Well Nourished, No Apparent Distress and Comfortable; Negative Respiratory Distress
HEENT: Normocephalic, Atraumatic, Moist Mucous Membranes and Anicteric
Respiratory: Clear to Auscultation and Non Labored Respirations; Negative Wheezes, Rales, Rhonchi or Crackles
Cardiac: Regular Rhythm and S1/S2; Negative Murmur, Rub or Calf Tenderness
GI: Soft, Nontender, Nondistended, Normal Bowel Sounds and Ostomy (normal content)
Musculoskeletal: No Clubbing, No Cyanosis and No Edema
Skin: Warm and Dry
Neuro: Awake, Alert, Oriented and Nonfocal/Grossly Intact
Psych: Calm
--- NOTE | 2024-10-15 21:08 | W.DCSUMMARY ---
Addendum entered and electronically signed by Verito Orourke MD 10/16/24 06:54:
Read, reviewed, and agree. See same day progress note for additional details. Time spent coordinating care, DC planning, review of DC plan of care with resident, transition of care, review of records in EMR, med rec, consults, notes, d/w
consultants, nursing, family, and CM = 25 minutes
Original Note:
Discharge Summary
Discharge Data
Date of Admission: 10/13/24
Date of Discharge: 10/14/24
-
Pending Results: No
Hospital Course
Discharging Physician : Edel Chavarria MD., Verito Orourke MD.
Disposition : Home
Primary care physician : Edel Spann DO
Principal Discharge diagnosis : Intra-Abdominal Abscess, type 2 diabetes mellitus
Chronic Discharge diagnosis : Essential Hypertension, ulcerative colitis with prior total colectomy and end ileostomy 2021
Hospital Course :
53-year-old male with above past medical history who presented to ED with complaints of urinary frequency for 1.5 weeks and left lower quadrant abdominal discomfort for several days. He was concerned for urine infection and had been increasing
his fluid intake as a result. He then developed a subjective fever malaise and rigors at home and presented to the ED for evaluation. He denied any recent change in ostomy output. But described increased discharge from his rectal stump over the
past week. He noted that he was scheduled for removal of the stump at [facility] in January 2025. In the ED, vitals were stable, leukocytes 12.0, sodium 130, serum glucose 416, bilirubin mildly elevated at 1.5. Left lower quadrant tenderness was noted
on physical exam.
CT scan showed 5.7 cm abscess adjacent to the rectosigmoid stump. IV antibiotics with Zosyn was started. Interventional radiology assessment revealed that abscess was not safely accessible for drainage. Colorectal surgery evaluation with no
emergent need for surgical intervention at this time. IV antibiotics was converted to Augmentin 875 mg p.o. twice daily x 3 weeks per infectious disease specialist recommendations.
New diagnosis of diabetes mellitus type 2, with HbA1c 10.0. Diabetes education was provided, and patient was maintained on insulin sliding scale while admitted.
Home antihypertensives was continued/held as appropriate.
Patient was deemed stable for discharge to home with the following recommendations:
-Be sure to schedule a follow up appointment with your colorectal surgeon at [facility] shortly
-New diagnosis of diabetes mellitus. Hemoglobin A1c 10.0. Start taking 500 mg metformin twice daily. And follow-up promptly with your family physician
-Check BMP in one week, PCP to place order
Important imaging findings :
CT abdomen/pelvis with IV contrast 10/12/2024:
Patient is status post colectomy for ulcerative colitis with a Bernard's pouch.
There is an ostomy in the right lower abdomen/upper pelvis, which is likely an ileostomy.
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 This appears to be the cause of small bowel obstruction, and surrounding fluid raises concern for incarceration and strangulation.
Small amount of mesenteric edema adjacent to dilated fluid-filled small bowel loops. Minimal amount of free fluid in the anterior right upper quadrant adjacent to the liver. No evidence of free intraperitoneal air.
Focal soft tissue density in the region of the gallbladder fundus, characteristic location for focal fundal adenomyomatosis.
Splenomegaly.
Discharge Plan
-
Patient Disposition: Home (Routine Discharge)
Discharge Diagnosis/Procedures: Abdominal abscess, Type 2 diabetes mellitus, hypokalemia
Condition: Fair
Diet: Diabetic, Carb Controlled
Activity: As tolerated
Driving Restrictions: As prior to admission
Bathing Restrictions: None
Blood Work: Basic Metabolic panel in one week, PCP to place order
Instructions: Diabetes and diet, Type 2 diabetes - Discharge instructions
Referrals:
Edel Spann, [Family Provider] - in less than 1 week
Additional Discharge Medication Instructions: Be sure to schedule a follow up appointment with your colorectal surgeon at [facility] shortly
New diagnosis of diabetes mellitus, please discuss this with your family physician
Check BMP in one week, PCP to place order
Prescriptions:
New
acetaminophen 325 mg Tablet
650 mg PO Q4HPRN PRN (Reason: pain) 30 Days Qty: 0 0RF
amoxicillin-pot clavulanate 875-125 mg tablet
1 tab PO BID 21 Days Qty: 42 0RF
metformin 500 mg tablet
500 mg PO BID 30 Days Qty: 60 0RF
Continued
olmesartan-hydrochlorothiazide 20-12.5 mg Tablet
1 tab PO DAILY
No Action
ibuprofen 200 mg Tablet
400 mg PO Q8HPRN PRN (Reason: mild pain)
Discharge Orders:
Discharge Patient (As Directed); Ordered 10/14/24
Ordered By: Edel Chavarria
Discharge Date and Time
Discharge Date/Time: 10/14/24 16:06
Print Language: GRENADIAN
== END 2024-10-14 16:06 | disposition home or self-care (01) | DRG 373 ==
LOC: 4 EAST ACU 01:57
PROVIDERS: Physician Assistant; Student in an Organized Health Care Education/Training Program; ADMITTING PHYSICIAN Hospitalist; ATTENDING PHYSICIAN Internal Medicine; CONSULT PHYSICIAN Surgery; EMERGENCY PHYSICIAN Emergency Medicine; FAMILY PHYSICIAN Family Medicine; OTHER PHYSICIAN Internal Medicine Infectious Disease
DX: K65.1 Peritoneal abscess (principal); E11.65 Type 2 diabetes mellitus with hyperglycemia; I10 Essential (primary) hypertension; E66.09 Other obesity due to excess calories; K43.5 Parastomal hernia without obstruction or gangrene; E87.6 Hypokalemia; Z68.33 Body mass index [BMI] 33.0-33.9, adult; Z79.899 Other long term (current) drug therapy; Z93.2 Ileostomy status; Z93.3 Colostomy status; Z90.49 Acquired absence of other specified parts of digestive tract; Z87.891 Personal history of nicotine dependence
CPT/HCPCS: 74177; 80048; 80053; 81003; 81015; 82962; 83036; 83605; 85025; 85027; 87040; 87086; 96365; 99284; Q9967